=== PATIENT | male | born 1980 | race Caucasian/White ===

== ENCOUNTER 2017-02-12 10:39 | Emergency (ER) | payer MEDICARE | END 2017-02-12 11:57 | disposition home or self-care (01) | LOC: ER1 10:39 | DX: J02.9 Acute pharyngitis, unspecified (principal); M54.5 Low back pain | CPT/HCPCS: 96372; 99282; J1885; J3360 ==

== ENCOUNTER 2017-02-17 23:15 | Emergency (ER) | payer MEDICARE | END 2017-02-18 03:05 | disposition home or self-care (01) | LOC: ER1 23:15 | DX: L02.214 Cutaneous abscess of groin (principal); F17.220 Nicotine dependence, chewing tobacco, uncomplicated | CPT/HCPCS: 10060; 99282 ==

== ENCOUNTER 2020-09-27 17:39 | Emergency (ER) | payer OTHER ==
[~2020-09-27 17:39] MED LIST: ALPRAZOLAM0.5 MG PO; BENTYL 20MG TAB20 MG PO; CARAFATE1 GM PO; CELEBREX100 MG PO; COLACE100 MG PO; GABAPENTIN600 MG PO; IBUPROFEN800 MG PO; LEVAQUIN750 MG PO; NICOTINE PATCH1 EAC2 TD; PROTONIX40 MG PO; ZOFRAN4 MG PO
== END 2020-09-27 23:00 | disposition left against medical advice (07) ==
LOC: ER1 17:39
DX: Z53.21 Procedure and treatment not carried out due to patient leaving prior to being seen by health care provider (principal)
CPT/HCPCS: 93005